=== PATIENT | female | born 2005 | race Caucasian/White ===

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

== ENCOUNTER 2023-03-27 11:27 | Emergency (ER) | payer MEDICAID ==
[~2023-03-27] VITALS: Ht 154.9 cm; Wt 40.8 kg
[2023-03-27] VITALS (7 sets, daily range): BP systolic 85–136; BP diastolic 48–102
[~2023-03-27 11:27] MED LIST changes: +BACTRIM DS1 TAB PO; +NAPROXEN500 MG PO
[2023-03-27 12:45] LABS: BASO% 0.6 % (0-3); EOS% 0.8 % (0-8); HEMATOCRIT 44.8 % (37.0-47.0); IMMATURE GRANULOCYTES 0.1 % (0.0-5.0); LYMPH% 19.3 % (15-41); MEAN CELL VOLUME 90.3 fL CALC (80.0-100.0); MEAN CORPUSCULAR HGB 30.2 pG CALC (26.0-32.0); MEAN CORPUSCULAR HGB CONC 33.5 g/dL CAL (32.0-36.0); MONO% 8.4 % (2-13); NEUT# 7.45 thou/uL (2.00-7.15); NEUT% 70.8 % (42-76); RED BLOOD COUNT 4.96 mill/uL (4.20-5.60); RED CELL DISTRI WIDTH 13.6 % (11.5-15.5)
[2023-03-27 12:58] LABS: ALBUMIN 4.7 g/dL (3.2-5.0); ALKALINE PHOSPHATASE 106 u/l (38-126); ANION GAP 13 (6-22 (CALC)); BILIRUBIN, TOTAL 0.4 mg/dL (0.02-1.3); BUN 12 mg/dL (8-21); BUN/CREATININE RATIO 17 (12-20 (CALC)); CARBON DIOXIDE 26 mmol/l (22-30); CHLORIDE 107 mmol/l (95-108); CREATININE 0.7 mg/dL (0.5-1.0); ETHYL ALCOHOL 0 mg/dl (0-30); GFR FOR AFR.AMER. > 60 ML/MIN (>=60 (CALC)); GFR OTHER RACES > 60 ML/MIN (>=60 (CALC)); POTASSIUM 3.6 mmol/l (3.5-5.1); SGOT/AST 29 u/l (14-36); SODIUM 142 mmol/l (137-146)
[2023-03-27] MEDS ORDERED: DiphenhydrAMINE HCL 50 MG/ML SDV IM ONE (13:30)
[2023-03-27] MEDS ORDERED: HALOPERIDOL LACTATE 5 MG/ML SDV IM ONE (13:30)
[2023-03-27 17:29] LABS: URINE BLOOD DIPSTICK Large (NEGATIVE); URINE GLUCOSE - DIPSTICK 100 mg/dL (NEGATIVE); URINE KETONE 15 mg/dL (NEGATIVE); URINE PH 5.5 (4.5-8.0); URINE PROTEIN - DIPSTICK >=300 mg/dL (NEG-TRACE); URINE SPECIFIC GRAVITY 1.025
[2023-03-27 17:30] LABS: URINE BACTERIA MODERATE hpf; URINE COLOR Red; URINE LEUK ESTERASE Large (NEGATIVE); URINE NITRITE - DIPSTICK Positive (Negative); URINE RBC >100 RBC/hpf (0-5); URINE SQUAMOUS EPITHELIAL CELL FEW EPI/hpf (0-FEW); URINE WBC 20-50 WBC/hpf (0-5)
[2023-03-27] MEDS ORDERED: LIDOcaine HCl 1% (Local Anesth.) 20 ML VIAL IM STA (19:27)
[2023-03-27] MEDS ORDERED: cefTRIAXone SODIUM 1 GM/VIAL SDV IM ONE (19:30)
== END 2023-03-27 23:25 ==
LOC: ED 11:27
PROVIDERS: Emergency Medicine
DX: R44.3 Hallucinations, unspecified (principal); R45.1 Restlessness and agitation; F16.10 Hallucinogen abuse, uncomplicated; F15.10 Other stimulant abuse, uncomplicated; F12.10 Cannabis abuse, uncomplicated; Z91.148 Patient's other noncompliance with medication regimen for other reason
CPT/HCPCS: S0166

== ENCOUNTER 2024-03-09 18:10 | Emergency (ER) | payer MEDICAID ==
[~2024-03-09] VITALS: Ht 154.9 cm; Wt 52.0 kg
[2024-03-09] MEDS ORDERED: SODIUM CHLORIDE 0.9% 1,000 ML IV STA (19:05)
[2024-03-09] MEDS ORDERED: ONDANSETRON HCl 4 MG/2 ML SDV IV STA (19:05)
[2024-03-09] MEDS ORDERED: DICYCLOMINE HCL 20 MG/2 ML VIAL IM ONE (19:10)
[2024-03-09] MEDS ORDERED: FAMOTIDINE 10MG/ML 2ML SDV IV ONE (19:10)
[2024-03-09 19:25] LABS: URINE BLOOD DIPSTICK Large (NEGATIVE); URINE COLOR Yellow; URINE GLUCOSE - DIPSTICK Negative (NEGATIVE); URINE KETONE 80 mg/dL (NEGATIVE); URINE LEUK ESTERASE Negative (NEGATIVE); URINE NITRITE - DIPSTICK Negative (Negative); URINE PROTEIN - DIPSTICK 30 mg/dL (NEG-TRACE); URINE SPECIFIC GRAVITY 1.025; URINE UROBILINOGEN - DIPSTICK 0.2 E.U./dL (0.2)
[2024-03-09 19:26] LABS: BASO% 0.3 % (0-3); EOS% 0.5 % (0-8); IMMATURE GRANULOCYTES 0.2 % (0.0-5.0); LYMPH% 13.1 % (15-41); MEAN CORPUSCULAR HGB 26.3 pG CALC (26.0-32.0); MEAN CORPUSCULAR HGB CONC 31.9 g/dL CAL (32.0-36.0); MONO% 9.7 % (2-13); NEUT# 10.02 thou/uL (2.00-7.15); NEUT% 76.2 % (42-76); RED BLOOD COUNT 4.64 mill/uL (4.20-5.60); RED CELL DISTRI WIDTH 14.6 % (11.5-15.5)
[2024-03-09 19:27] LABS: HEMATOCRIT 38.2 % (37.0-47.0); HEMOGLOBIN 12.2 g/dl (12.0-16.0); MEAN CELL VOLUME 82.3 fL CALC (80.0-100.0)
[2024-03-09 19:32] LABS: URINE RBC >100 RBC/hpf (0-5); URINE SQUAMOUS EPITHELIAL CELL MODERATE EPI/hpf (0-FEW)
[2024-03-09 19:33] LABS: URINE BACTERIA FEW hpf
[2024-03-09 19:39] LABS: ALBUMIN 4.4 g/dL (3.2-5.0); CREATININE 1.1 mg/dL (0.5-1.0); POTASSIUM 3.4 mmol/l (3.5-5.1); TOTAL PROTEIN 7.8 g/dL (6.3-8.2)
[2024-03-09 19:40] LABS: BILIRUBIN, TOTAL 0.7 mg/dL (0.02-1.3)
[2024-03-09] MEDS ORDERED: KETOROLAC TROMETHAMINE 15 MG/ML SDV IV STA (20:04)
[2024-03-09 20:26] VITALS: BP 84/64
[2024-03-09 20:30] VITALS: BP 112/73
[2024-03-09 21:00] VITALS: BP 110/61
[2024-03-09 21:30] VITALS: BP 104/58
[2024-03-09] MEDS ORDERED: PERCOCET 5/325M1 TAB PO (23:06)
[2024-03-09] MEDS ORDERED: TAMSULOSIN0.4 MG PO (23:06)
[2024-03-09] MEDS ORDERED: TAMSULOSIN HCL 0.4 MG CAP PO ONE (23:10)
[2024-03-09] MEDS ORDERED: oxyCODONE 5MG/ ACETAMINOPHEN 325MG TAB PO ONE (23:10)
[2024-03-09 23:36] VITALS: BP 104/58
== END 2024-03-09 23:36 | disposition home or self-care (01) ==
LOC: ED 18:10
PROVIDERS: Emergency Medicine
DX: N13.2 Hydronephrosis with renal and ureteral calculous obstruction (principal)
CPT/HCPCS: J0500; J1885; J2405